=== PATIENT | male | born 1965 | race Caucasian/White ===

== ENCOUNTER → 2019-03-21 | Outpatient (CLI) | payer OTHER ==
[~2019-03-21] MED LIST: ARMOUR THYROID90 MG PO; CHLORDIAZEPOXID25 MG PO; CIPRO500 MG PO; HYDROCODONE BIT1 T11 PO; LISINOPRIL20 MG PO; MOTRIN800 MG PO; NAPROSYN500 MG PO; NORVASC10 MG PO; NORVASC5 MG PO; Synthroid,Levo75 MCG PO; ULTRAM50 MG PO; ZESTRIL10 MG PO
[2019-03-21 10:53] LABS: BASO # 0.1 10*3/uL (0.0-0.1); BASO % 1.3 % (0.0-1.0); EOS # 0.3 10*3/uL (0.0-0.4); EOS % 5.1 % (1.0-4.0); HEMATOCRIT 42.6 % (42.0-52.0); HEMOGLOBIN 14.9 g/dl (14.0-18.0); LYMPH # 1.1 10*3/uL (1.3-4.4); LYMPH % 16.6 % (27.0-41.0); MEAN CELL VOLUME 97.5 fl (80.0-94.0); MEAN CORPUSCULAR HGB 34.1 pg (27.0-31.0); MEAN PLATELET VOLUME 10.8 fl (9.6-12.3); MONO # 0.5 10*3/uL (0.1-1.0); MONO % 7.3 % (3.0-9.0); NEUT # 4.6 10*3/uL (2.3-7.9); NEUT % 69.3 % (47.0-73.0); PLATELET COUNT AUTOMATED 220 10*3/uL (130-400); RED BLOOD COUNT 4.37 10*6/uL (4.50-5.90); RED CELL DISTRI WIDTH 12.4 % (0-14.5); WHITE BLOOD COUNT 6.7 10*3/uL (4.8-10.8)
[2019-03-21 11:27] LABS: ALKALINE PHOSPHATASE 76 U/L (45-117); BUN 8 mg/dl (7-24); CHLORIDE 106 mmol/L (98-107); CHOLESTEROL 197 mg/dL (<200); CREATININE 1.05 mg/dL (0.70-1.30); HDL CHOLESTEROL 58 mg/dl (40-60); LDL CHOLESTEROL 119 mg/dL (9-159); POTASSIUM 3.8 mmol/L (3.5-5.1); SGOT/AST 203 IU/L (3-35); SGPT/ALT 221 U/L (12-78); SODIUM 140 mmol/L (136-145); TRIGLYCERIDES 99 mg/dl (<150); VLDL CHOLESTEROL 20 mg/dL (6-40)
[2019-03-21 11:53] LABS: FREE T4 1.02 ng/dl (0.76-1.46)
[2019-03-22 08:08] LABS: HEPATITIS B SURFACE AG Negative (Negative); HEPATITIS C VIRUS ANTIBODY <0.1 s/co (0.0-0.9)
== END | disposition home or self-care (01) ==
LOC: LAB 10:04
PROVIDERS: Family Medicine
DX: I10 Essential (primary) hypertension (principal); E03.9 Hypothyroidism, unspecified; E78.5 Hyperlipidemia, unspecified; E55.9 Vitamin D deficiency, unspecified; F10.10 Alcohol abuse, uncomplicated; E11.9 Type 2 diabetes mellitus without complications; R53.1 Weakness

== ENCOUNTER → 2019-05-08 | Outpatient (CLI) | payer OTHER ==
[2019-05-08 09:40] LABS: FREE T4 1.03 ng/dl (0.76-1.46)
== END | disposition home or self-care (01) ==
LOC: US 07:30 → LAB 07:38
PROVIDERS: Family Medicine
DX: E03.9 Hypothyroidism, unspecified (principal); R74.0 Nonspecific elevation of levels of transaminase and lactic acid dehydrogenase [LDH]

== ENCOUNTER → 2019-05-26 | Outpatient (CLI) | payer OTHER ==
[2019-05-26 13:18] LABS: FREE T4 1.01 ng/dl (0.76-1.46)
== END | disposition home or self-care (01) ==
LOC: LAB 11:24
PROVIDERS: Family Medicine
DX: E03.9 Hypothyroidism, unspecified (principal); E74.00 Glycogen storage disease, unspecified

== ENCOUNTER → 2019-07-12 | Outpatient (CLI) | payer OTHER ==
[2019-07-12 11:30] LABS: FREE T4 1.05 ng/dl (0.76-1.46)
== END | disposition home or self-care (01) ==
LOC: LAB 10:03
PROVIDERS: Family Medicine
DX: E03.9 Hypothyroidism, unspecified (principal)

== ENCOUNTER 2019-09-01 09:42 | Inpatient (IN) | payer OTHER ==
[~2019-09-01] VITALS: Ht 177.8 cm; Wt 93.6 kg
[2019-09-01 09:52] VITALS: BP 146/80
[2019-09-01 10:14] LABS: BASO # 0.1 10*3/uL (0.0-0.1); BASO % 0.9 % (0.0-1.0); EOS # 0.3 10*3/uL (0.0-0.4); EOS % 3.6 % (1.0-4.0); HEMATOCRIT 41.1 % (42.0-52.0); LYMPH % 15.2 % (27.0-41.0); MEAN CELL VOLUME 95.6 fl (80.0-94.0); MEAN CORPUSCULAR HGB 34.7 pg (27.0-31.0); MEAN CORPUSCULAR HGB CONC 36.3 g/dl (33.0-37.0); MEAN PLATELET VOLUME 10.5 fl (9.6-12.3); MONO # 0.7 10*3/uL (0.1-1.0); MONO % 9.5 % (3.0-9.0); NEUT # 4.8 10*3/uL (2.3-7.9); NEUT % 70.2 % (47.0-73.0); PLATELET COUNT AUTOMATED 184 10*3/uL (130-400); WHITE BLOOD COUNT 6.9 10*3/uL (4.8-10.8)
[2019-09-01 10:20] LABS: URINE AMPHETAMINES < 1000 (1000ng/ml); URINE BARBITURATES < 200 (200ng/ml); URINE BENZODIAZEPINES < 200 (200ng/ml); URINE CANNABINOIDS (THC) < 50 (50ng/ml); URINE COCAINE < 300 (300ng/ml); URINE METHADONE < 300 (300ng/ml); URINE OPIATES < 300 (300ng/ml)
[2019-09-01 10:21] LABS: URINE PHENCYCLIDINE < 25 (25ng/ml)
[2019-09-01 10:23] VITALS: BP 144/85
[2019-09-01 10:24] LABS: BILIRUBIN NEGATIVE (NEGATIVE); BLOOD NEGATIVE (NEGATIVE); CLARITY CLEAR (CLEAR); COLOR YELLOW (YELLOW); GLUCOSE 2+ (NEGATIVE); KETONE 1+ (NEGATIVE); PH 6.5 (5.0-9.0); UROBILINOGEN 0.2 E.U./dl (0.2-1.0)
[2019-09-01 10:25] LABS: BACTERIA TRACE; LEUKO ESTERASE 1+ (NEGATIVE); MUCOUS TRACE; NITRITE NEGATIVE (NEGATIVE); RBC 0-2 rbc/hpf (0-2)
[2019-09-01 10:28] LABS: ALBUMIN 3.9 gm/dl (3.1-4.5); ALKALINE PHOSPHATASE 82 U/L (45-117); BUN 10 mg/dl (7-24); CHLORIDE 100 mmol/L (98-107); CREATININE 1.07 mg/dL (0.70-1.30); POTASSIUM 3.7 mmol/L (3.5-5.1); SGOT/AST 123 IU/L (3-35); SGPT/ALT 184 U/L (12-78); SODIUM 135 mmol/L (136-145); TOTAL PROTEIN 7.8 gm/dL (6.4-8.2)
[2019-09-01 10:31] LABS: ACETAMINOPHEN (TYLENOL) < 5.0 ug/ml (10-30); ETHYL ALCOHOL < 3.0 mg/dl (<3)
[2019-09-01 11:45] VITALS: BP 155/87
--- NOTE | 2019-09-01 11:45 | NUR ---
54 year old [id number] admitted to room # 428 for stabilization. Reports an addiction to ALCOHOL last used 10 hours prior to admission. Compliant with admission procedure. Patient denies any anxiety, but is unable to sit still, taps toes to floor continuously, looks about room, unable to focus eyes on nurse during interview. See assessment forms for additional information about patient status.
--- NOTE | 2019-09-01 15:07 | NUR ---
PATIENT MEETS [facility]. PATIENT IS WANTING THE VIVITROL SHOT AT [facility] FOR HIS AFTERCARE PLAN. DE STAFF WILL SET UP APPOINTMENT FOR HIM. NEFTALI MONTALVO B.A. MANAGER COMMODITIES
[2019-09-01 16:00] VITALS: BP 143/83
--- NOTE | 2019-09-01 16:03 | NUR ---
PATIENT'S FOLLOW UP APPOINTMENT FOR [facility] IS August AT 9AM OVER THE PHONE. PATIENT'S VIVITROL INJECTION APPOINTMENT WILL BE August AT 10:30AM IN THE OFFICE. NEFTALI MONTALVO B.A. NETWORK TECHNICAL ANALYST
[2019-09-01 20:00] VITALS: BP 115/69
--- NOTE | 2019-09-01 20:46 | NUR ---
24 HR chart check completed.
--- NOTE | 2019-09-01 21:00 | NUR ---
Patient displaying withdrawal symptoms, including: irritability, anxiousness, restlessness and agitation. Scheduled/PRN medications provided, SEE EMAR. Will continue to monitor medication effectiveness.
--- NOTE | 2019-09-01 23:00 | NUR ---
Patient resting. Responding to scheduled medications with fewer complaints of pain and anxiety.
[2019-09-02] VITALS: BP 134/77
--- NOTE | 2019-09-02 00:15 | NUR ---
Patient displaying withdrawal symptoms, including: irritability, anxiousness, restlessness and agitation. Scheduled medications provided, SEE EMAR. Will continue to monitor medication effectiveness.
--- NOTE | 2019-09-02 01:50 | NUR ---
Patient resting. Responding to scheduled medications with fewer complaints of pain and anxiety.
[2019-09-02 04:00] VITALS: BP 128/80
--- NOTE | 2019-09-02 05:00 | NUR ---
Patient displaying withdrawal symptoms, including: irritability, anxiousness, restlessness and agitation. Scheduled medications provided, SEE EMAR. Will continue to monitor medication effectiveness.
[2019-09-02 06:42] LABS: ALBUMIN 3.4 gm/dl (3.1-4.5); BILIRUBIN, DIRECT 0.2 mg/dL (0.0-0.2); TOTAL PROTEIN 6.8 gm/dL (6.4-8.2)
[2019-09-02 08:00] VITALS: BP 130/80
--- NOTE | 2019-09-02 10:00 | NUR ---
OFFERED PRN MEDICATIONS AT THIS TIME; PT DOES NOT WANT AT THIS TIME.
[2019-09-02 12:00] VITALS: BP 139/95
--- NOTE | 2019-09-02 14:51 | NUR ---
PT RESTING, CALL LIGHT IN REACH. DENIES NEEDS.
[2019-09-02 16:00] VITALS: BP 139/85
[2019-09-02 20:00] VITALS: BP 145/86
[2019-09-03] VITALS: BP 148/91
--- NOTE | 2019-09-03 01:17 | NUR ---
24HR CHART CHECK COMPLETED
--- NOTE | 2019-09-03 01:50 | NUR ---
AWAKENS EASILY FOR SCHEDULED ATIVAN. NO COMPLAINTS VOICED. CALL LIGHT IN REACH.
--- NOTE | 2019-09-03 06:54 | NUR ---
EASILY AROUSED FOR AM MEDS. SLIGHT TREMORS TO HANDS NOTED. NO COMPLAINTS AT THIS TIME. CALL LIGHT IN REACH.
[2019-09-03 08:00] VITALS: BP 122/76
[2019-09-03 12:00] VITALS: BP 126/85
--- NOTE | 2019-09-03 12:00 | NUR ---
DENIES ANY NEEDS AT THIS TIME. CALL LIGHT IS WITHIN REACH.
[2019-09-03 16:00] VITALS: BP 108/75
[2019-09-03 20:00] VITALS: BP 137/86
[2019-09-04] VITALS: BP 153/83
--- NOTE | 2019-09-04 04:29 | NUR ---
PATIENT RESTING IN BED WITH NO S/S OF DISTRESS. BED IN LOWEST POSITION, CALL LIGHT IN REACH
[2019-09-04 08:00] VITALS: BP 128/92
[2019-09-04] MEDS ORDERED: ATARAX,VISTARIL50 MG PO (08:15)
[2019-09-04] MEDS ORDERED: THERA TABLET400 MCG PO (08:37)
[2019-09-04] MEDS ORDERED: NATURE'S BLEND F1 MG PO (08:37)
--- NOTE | 2019-09-04 10:56 | NUR ---
Discharge instructions reviewed with patient. Patient receptive and verbalizes understanding. Follow-up care arranged. Written instructions given to patient. PATIENT DISCHARGED TO [facility] [place], FOR TRANSPORT HOME BY PRIVATE VEHICLE. WILLIS CAZARES
[2019-09-05 01:04] LABS: HEP B CORE AB, IGM Negative (Negative); HEPATITIS B SURFACE AG Negative (Negative); HEPATITIS C VIRUS ANTIBODY <0.1 s/co (0.0-0.9)
== END 2019-09-04 10:56 | disposition home or self-care (01) | DRG 775 ==
LOC: ED 09:42 → EDHOLD 10:48 → 4E 10:48
PROVIDERS: Physician Assistant; Registered Nurse; ADMIT Family Medicine
DX: F10.10 Alcohol abuse, uncomplicated (principal); I10 Essential (primary) hypertension; E03.9 Hypothyroidism, unspecified; E78.5 Hyperlipidemia, unspecified; R74.0 Nonspecific elevation of levels of transaminase and lactic acid dehydrogenase [LDH]; R74.8 Abnormal levels of other serum enzymes; Z88.0 Allergy status to penicillin; Z91.013 Allergy to seafood; Z82.0 Family history of epilepsy and other diseases of the nervous system; Z83.3 Family history of diabetes mellitus; Z87.440 Personal history of urinary (tract) infections; Z79.899 Other long term (current) drug therapy

== ENCOUNTER → 2019-11-30 | Outpatient (CLI) | payer OTHER ==
[~2019-11-30] MED LIST changes: +ATARAX,VISTARIL50 MG PO; +NATURE'S BLEND F1 MG PO; +THERA TABLET400 MCG PO
== END | disposition home or self-care (01) ==
LOC: RAD 09:32
DX: M54.5 Low back pain (principal)

== ENCOUNTER → 2020-06-06 | Outpatient (CLI) | payer OTHER ==
[2020-06-06 10:55] LABS: BUN 6 mg/dl (7-24); CHLORIDE 104 mmol/L (98-107); POTASSIUM 4.1 mmol/L (3.5-5.1); SODIUM 138 mmol/L (136-145)
== END | disposition home or self-care (01) ==
LOC: LAB 10:14
PROVIDERS: Family Medicine; ATTEND Family Medicine
DX: Z79.899 Other long term (current) drug therapy (principal)

== ENCOUNTER 2020-10-12 18:09 | Emergency (ER) | payer OTHER ==
[~2020-10-12] VITALS: Ht 177.8 cm; Wt 90.3 kg
[~2020-10-12 18:09] MED LIST changes: +SYNTHROID,LEV112 MCG PO; -Synthroid,Levo75 MCG PO
[2020-10-12 19:04] LABS: BASO # 0.1 10*3/uL (0.0-0.1); BASO % 0.9 % (0.0-1.0); EOS # 0.3 10*3/uL (0.0-0.4); EOS % 4.1 % (1.0-4.0); HEMATOCRIT 39.3 % (42.0-52.0); LYMPH # 1.2 10*3/uL (1.3-4.4); LYMPH % 17.1 % (27.0-41.0); MEAN CELL VOLUME 94.9 fl (80.0-94.0); MEAN CORPUSCULAR HGB 34.5 pg (27.0-31.0); MEAN CORPUSCULAR HGB CONC 36.4 g/dl (33.0-37.0); MEAN PLATELET VOLUME 10.4 fl (9.6-12.3); MONO # 0.7 10*3/uL (0.1-1.0); MONO % 9.7 % (3.0-9.0); NEUT # 4.8 10*3/uL (2.3-7.9); NEUT % 67.9 % (47.0-73.0); PLATELET COUNT AUTOMATED 197 10*3/uL (130-400); RED BLOOD COUNT 4.14 10*6/uL (4.50-5.90); RED CELL DISTRI WIDTH 11.8 % (0-14.5)
[2020-10-12 19:20] LABS: ALBUMIN 3.7 gm/dl (3.1-4.5); ALKALINE PHOSPHATASE 107 U/L (45-117); BUN 7 mg/dl (7-24); CHLORIDE 104 mmol/L (98-107); CREATININE 0.74 mg/dL (0.70-1.30); LIPASE 277 U/L (73-393); POTASSIUM 3.3 mmol/L (3.5-5.1); SGOT/AST 258 IU/L (3-35); SGPT/ALT 260 U/L (12-78); SODIUM 139 mmol/L (136-145); TOTAL PROTEIN 8.1 gm/dL (6.4-8.2)
[2020-10-12 19:32] LABS: BILIRUBIN Negative (Negative); BLOOD Negative (Negative); CLARITY Clear (Clear); COLOR Dark Yellow (Yellow); GLUCOSE Negative (Negative); KETONE 2+ (Negative); LEUKO ESTERASE 2+ (Negative); NITRITE Negative (Negative); PH 6.5 (4.5-8.0)
[2020-10-12 19:48] LABS: WBC 31-40 wbc/hpf (0-5)
[2020-10-12 19:49] LABS: BACTERIA 2+; MUCOUS 1+
[2020-10-12] MEDS ORDERED: DICYCLOMINE HCL10 MG PO (21:44)
[2020-10-12] MEDS ORDERED: CIPRO500 MG PO (21:47)
== END 2020-10-12 21:45 | disposition home or self-care (01) ==
LOC: ED 18:09
PROVIDERS: Emergency Medicine; Physician Assistant
DX: K80.20 Calculus of gallbladder without cholecystitis without obstruction (principal); Z88.0 Allergy status to penicillin; Z79.899 Other long term (current) drug therapy; Z98.890 Other specified postprocedural states

== ENCOUNTER 2020-10-17 19:55 | Emergency (ER) | payer OTHER ==
[~2020-10-17] VITALS: Ht 177.8 cm; Wt 89.4 kg
[~2020-10-17 19:55] MED LIST changes: +DICYCLOMINE HCL10 MG PO
== END 2020-10-17 23:30 | disposition left against medical advice (07) ==
LOC: ED 19:55
DX: R03.1 Nonspecific low blood-pressure reading (principal); Z53.21 Procedure and treatment not carried out due to patient leaving prior to being seen by health care provider

== ENCOUNTER → 2021-07-24 | Day surgery (SDC) | payer OTHER ==
[~2021-07-24] VITALS: Ht 15544 cm; Wt 74.8 kg
[2021-07-24 07:07] VITALS: BP 130/73
[2021-07-24 08:14] VITALS: BP 103/59
[2021-07-24 08:29] VITALS: BP 104/62
[2021-07-24 08:45] VITALS: BP 124/68
== END | disposition home or self-care (01) ==
LOC: SDC 05-15 13:15
PROVIDERS: ATTEND Surgery
DX: Z12.11 Encounter for screening for malignant neoplasm of colon (principal); D12.8 Benign neoplasm of rectum; K57.30 Diverticulosis of large intestine without perforation or abscess without bleeding; I10 Essential (primary) hypertension; F41.9 Anxiety disorder, unspecified; M06.9 Rheumatoid arthritis, unspecified; E03.9 Hypothyroidism, unspecified; E78.5 Hyperlipidemia, unspecified; Z20.822 Contact with and (suspected) exposure to COVID-19; Z88.0 Allergy status to penicillin; Z79.899 Other long term (current) drug therapy

== ENCOUNTER → 2022-04-10 | Outpatient (CLI) | payer OTHER ==
[2022-04-10 08:14] LABS: BASO # 0.1 10*3/uL (0.0-0.1); BASO % 0.8 % (0.0-1.0); EOS # 0.3 10*3/uL (0.0-0.4); EOS % 4.8 % (1.0-4.0); HEMATOCRIT 38.6 % (42.0-52.0); LYMPH # 0.7 10*3/uL (1.3-4.4); LYMPH % 11.7 % (27.0-41.0); MEAN CELL VOLUME 95.3 fl (80.0-94.0); MEAN CORPUSCULAR HGB 33.8 pg (27.0-31.0); MEAN CORPUSCULAR HGB CONC 35.5 g/dl (33.0-37.0); MEAN PLATELET VOLUME 9.6 fl (9.6-12.3); MONO # 0.5 10*3/uL (0.1-1.0); MONO % 7.9 % (3.0-9.0); NEUT # 4.5 10*3/uL (2.3-7.9); NEUT % 74.6 % (47.0-73.0); PLATELET COUNT AUTOMATED 216 10*3/uL (130-400); RED BLOOD COUNT 4.05 10*6/uL (4.50-5.90); RED CELL DISTRI WIDTH 12.4 % (0-14.5)
[2022-04-10 08:32] LABS: ALKALINE PHOSPHATASE 59 U/L (46-116); BUN 9 mg/dl (9-23); CHLORIDE 100 mmol/L (98-107); CHOLESTEROL 183 mg/dL (<200); CREATININE 0.68 mg/dL (0.70-1.30); LDL CHOLESTEROL 57 mg/dL (9-159); SGPT/ALT 69 U/L (10-49); SODIUM 138 mmol/L (136-145); TOTAL PROTEIN 7.4 gm/dL (6.0-8.0); TRIGLYCERIDES 58 mg/dl (<150)
[2022-04-10 08:49] LABS: FREE T4 0.94 ng/dl (0.89-1.76)
[2022-04-10 11:38] LABS: VITAMIN D, 25-HYDROXY 244.5 ng/mL (30-100)
== END | disposition home or self-care (01) ==
LOC: LAB 07:50
PROVIDERS: Student in an Organized Health Care Education/Training Program; ATTEND Family Medicine
DX: Z13.220 Encounter for screening for lipoid disorders (principal); E11.9 Type 2 diabetes mellitus without complications; I10 Essential (primary) hypertension; R53.83 Other fatigue

== ENCOUNTER 2022-04-30 06:39 | Emergency (ER) | payer OTHER ==
[~2022-04-30] VITALS: Ht 172.7 cm; Wt 72.6 kg
[2022-04-30] MEDS ORDERED: CILOXAN 5 ML5 ML OPH (07:41)
== END 2022-04-30 08:00 | disposition home or self-care (01) ==
LOC: ED 06:39
DX: H10.89 Other conjunctivitis (principal); Z88.0 Allergy status to penicillin; Z79.899 Other long term (current) drug therapy